=== PATIENT | female | born 1935 | race Caucasian/White ===

== ENCOUNTER 2017-12-26 07:44 | Observation (INO) | payer MEDICAID, MEDICARE ==
[2017-12-26] MEDS ORDERED: DEXTROSE 50%-WATER 50 ML SYRG IV ONE (08:06)
--- NOTE | 2017-12-26 08:11 | ERNOTE ---
Neuro HPI ER Record Presenting Symptoms: weakness - left sided Time Seen by Provider: 12/26/17 08:06 Source: family, EMS, correction records Exam Limitations: dementia - patient is a resident of [facility] and on making morning rounds they found that she had left-sided weakness, difficult to assess given the underlying dementia Immunizations: IMMUNIZATION HX Immunizations Up to Date Yes History of Influenza Vaccine No Hx Pneumococcal Vaccination Yes Allergies/Adverse Reactions: Allergies Allergy/AdvReac Type Severity Reaction Status Date / Time aspirin Allergy Unknown Verified 12/26/17 08:12 losartan Allergy Unknown Verified 12/26/17 08:12 Sulfa (Sulfonamide Allergy Unknown Verified 12/26/17 08:12 Antibiotics) Home Medications: HOME MEDICATIONS Diltiazem HCl [Diltiazem 24Hr Cd] 240 mg PO DAILY 02/23/15 [Last Taken Unknown] metFORMIN HCL [Glucophage] 500 mg PO BIDWM 02/23/15 [Last Taken Unknown] hydrochlorothiazide 25 mg tablet 25 mg PO DAILY 10/15/17 [Last Taken Unknown] levothyroxine 100 mcg capsule 112 mcg PO DAILY 10/15/17 [Last Taken Unknown] benzonatate 100 mg capsule 100 mg PO TID PRN #21 cap 12/15/17 [Last Taken Unknown] Acetaminophen [Mapap] 650 mg PO Q4H 12/26/17 [Last Taken Unknown] Calcium Carb/Magnesium Hydrox [Antacid Chewable Tablet] 1 each PO DAILY 12/26/17 [Last Taken Unknown] Clopidogrel Bisulfate [Plavix] 75 mg PO DAILY 12/26/17 [Last Taken Unknown] Ferrous Sulfate 325 mg PO BID 12/26/17 [Last Taken Unknown] Fexofenadine HCl 60 mg PO DAILY 12/26/17 [Last Taken Unknown] Furosemide 20 mg PO DAILY 12/26/17 [Last Taken Unknown] Glimepiride [Amaryl] 4 mg PO DAILY@0700 12/26/17 [Last Taken Unknown] Insulin Detemir [Levemir Flextouch] 15 unit SQ BID 12/26/17 [Last Taken Unknown] traMADol HCL [Tramadol HCl] 25 mg PO Q4H 12/26/17 [Last Taken Unknown] - History of Present Illness Onset: cannot confirm onset Severity: moderate - Character of Deficits New weakness: Present: LUE, LLE Baseline Cognition: Present: poor alertness Review of Systems - Review of Systems Constitutional: Present: See HPI EYE: Present: no symptoms reported ENT: Present: no symptoms reported Respiratory: Present: no symptoms reported Cardiology: Present: no symptoms reported Gastrointestinal/Abdominal: Present: no symptoms reported Genitourinary: Present: no symptoms reported Musculoskeletal: Present: no symptoms reported Skin: Present: no symptoms reported Neurological: Present: See HPI Endocrine: Present: no symptoms reported Hematologic/Lymphatic: Present: no symptoms reported Psych: Present: no symptoms reported Medical History (Last Updated 12/26/17 @ 08:09 by Latrell Valdez DO) Dementia Diabetes mellitus Onset Date: Unknown Hyperlipidemia Onset Date: Unknown Hypertension Onset Date: Unknown Thyroid disease Onset Date: Unknown Surgical History: Surgical History (Last Updated 09/29/17 @ 16:42 by Tracy Sykes RN) History of cataract surgery Onset Date: Unknown H/O: hysterectomy Onset Date: Unknown History of appendectomy Onset Date: Unknown History of esophagogastroduodenoscopy (EGD) Onset Date: Unknown History of thyroid surgery Onset Date: Unknown Family History: Family History (Last Updated 09/27/17 @ 16:58 by Vira Rm RN) Father Myocardial infarction Mother Diabetes Myocardial infarction Social History: Preferred Language Yi Abuse History No History of abuse Psych History No pertinent hx Physical Exam - Physical Exam General Appearance: Present: no apparent distress Head Exam: Present: normal inspection, no evidence of injury Eye Exam: Normal inspection: bilateral, PERRL: bilateral Ears, Nose, Throat: Present: normal ENT inspection, H, normal pharynx Neck: Present: normal inspection, nontender Respiratory: Present: no respiratory distress, normal breath sounds, no accessory muscle use, chest nontender, lungs clear Cardiovascular/Chest: Present: regular rate, rhythm, no murmur, normal peripheral pulses Gastrointestinal/Abdominal: Present: normal bowel sounds, nontender, nondistended, soft, no organomegaly Rectal Exam: Present: deferred Back Exam: Present: normal inspection, normal range of motion Extremity Exam: Present: normal inspection, non-tender, no edema, normal range of motion Neurological Exam: Present: normal mood/affect - patient is pleasantly confused with weakness of the left arm left leg, left arm drift and left-sided facial weakness Skin Exam: Present: normal color, warm/dry Lymphatic Exam: Present: no adenopathy Ramandeep Coma Scale - Assess Eye Opening: Spontaneous Motor: Obeys Commands Verbal: Confused - Total Coma Scale Total: 14 Initial Stroke Assessment - NIH Stroke Scale Level of Consciousness: Alert LOC Questions (Year and Age): Answers neither correctly LOC Commands (open/close eyes/fist): Performs both correctly Lateral Gaze Paresis: None Facial Palsy: Partial facial paralysis Right Arm Motor (10 sec hold): No drift Left Arm Motor (10 sec hold): Drift, effort made Right Leg Motor (5 sec hold): No drift Left Leg Motor (5 sec hold): Drift, effort made Dysarthria (speech clarity): Normal articulation ED Progress - Results and Orders Patient's Lab Results:: I have reviewed the patient's lab results. - Vital Signs Patient's Vital Signs:: I have reviewed the patient's vital signs. - EKG EKG: NSR - CT/Ultrasound CT/Ultrasound Narrative: CT the head reviewed by me Plan - Plan Plan: Initial be admitted to a monitored bed for correction of her low potassium, deglutition study and general neurologic monitoring. Departure Clinical Impression: Hypokalemia CVA (cerebral vascular accident) Qualifiers: CVA mechanism: occlusion Precerebral and cerebral artery: unspecified cerebral artery Qualified Code(s): I63.50 - Cerebral infarction due to unspecified occlusion or stenosis of unspecified cerebral artery - Departure Disposition: Still a patient Condition: Fair Referrals: Becky Seo DO [Primary Care Provider] -
[2017-12-26 08:12] LABS: Hematocrit 39.8 % (37.0-47.0); Hemoglobin 13.7 gm/dL (12.5-16.0); Mean Cell Volume 84.5 fl (78-100); Mean Corpuscular Hemoglobin 29.1 pg (27-31); Mean Corpuscular Hgb Conc 34.4 g/dl (32-36); Mean Platelet Volume 9.5 fl (8-12.5); Neutrophil # 6.6 K/mm3 (1.3-6.0); Platelet Count 283 K/mm3 (150-450); Red Blood Count 4.71 M/mm3 (4.2-5.4); Red Cell Distribution Width 15.9 % (11.5-14.0); White Blood Count 10.9 K/mm3 (4.0-10.5)
[2017-12-26] MEDS ORDERED: DEXTROSE 50%-WATER 50 ML SYRG ONE (08:12)
[2017-12-26 08:16] LABS: Prothrombin Time (Patient) 9.9 Seconds (9.0-11.0)
[2017-12-26 08:17] LABS: INR 0.99 INR (0.90-1.10)
[2017-12-26 08:19] LABS: Albumin * 2.8 gm/dl (3.4-5.0); Anion Gap 7.6 mmol/L (6.8-13.8); Bilirubin, Total 0.4 mg/dL (0.0-1.1); Ca. Corrected For Albumin 8.8 mg/dL (8.4-10.2); Calcium * 8.2 mg/dL (7.9-10.9); Carbon Dioxide 29.7 mmol/L (24-32.6); Total Protein 7.5 gm/dL (6.2-8.2)
[2017-12-26] MEDS ORDERED: NORMAL SALINE 1,000 ML IV PRN (08:20)
[2017-12-26 08:21] LABS: Potassium 2.3 mmol/L (3.4-4.6)
[2017-12-26] MEDS: POTASSIUM CHLORIDE IN WATER 100 ML IV SCH ×3 (08:48→11:55)
[2017-12-26 08:56] LABS: Urine Bilirubin Negative (NEGATIVE); Urine Blood Negative /ul (NEGATIVE); Urine Ketone Negative (NEGATIVE); Urine Nitrite Negative (NEGATIVE); Urine Protein Negative (NEGATIVE); Urine Specific Gravity 1.015 SP.GR. (1.005-1.010); Urine Urobilinogen Normal (NORMAL)
[2017-12-26 09:02] LABS: Urine Appearance Slightly Cloudy (CLEAR); Urine Color Yellow
[2017-12-26 09:03] LABS: Urine Bacteria 1+; Urine RBC None Seen /hpf (0-5)
[2017-12-26] MEDS ORDERED: POTASSIUM CHLORIDE 40 MEQ/15 ML BTL PO ONE (11:53)
[2017-12-26] MEDS ORDERED: ACETAMINOPHEN 325 MG TABLET PO PRN (12:49)
[2017-12-26] MEDS ORDERED: BENZONATATE 100 MG CAPSULE PO PRN (12:49)
[2017-12-26] MEDS ORDERED: CALCIUM CARBONATE 500 MG TAB.CHEW PO PRN (12:49)
[2017-12-26] MEDS: traMADol HCL 50 MG TABLET PO SCH ×3 (13:37→20:56)
--- NOTE | 2017-12-26 13:40 | HP ---
Chief Complaint - Chief Complaint Date of Service: 12/26/17 Time of Service: 13:05 Chief Complaint: Stroke-like symptoms History of Present Illness: The patient resides at [facility]. Per [facility], during morning rounds this AM, the patient was found to be unable to speak and had a flaccid left arm. However, HPI is limited secondary to the patient's baseline dementia. At the time of my exam, the patient states she feels perfectly fine and feels like her usual self. She denies any trouble speaking or swallowing and she denies any focal weakness. Multiple family members were in the room at the time of my exam and she was interacting with them normally and she appeared to be at her baseline when compared to the multiple times I have seen her at [facility]. Medical History (Last Updated 12/26/17 @ 10:58 by Marjorie Zamora RN) Dementia GERD (gastroesophageal reflux disease) Onset Date: Unknown Diabetes mellitus Onset Date: Unknown Hyperlipidemia Onset Date: Unknown Hypertension Onset Date: Unknown Thyroid disease Onset Date: Unknown Surgical History: Surgical History (Last Reviewed 12/26/17 @ 11:12 by Marjorie Zamora RN) History of cataract surgery Onset Date: Unknown H/O: hysterectomy Onset Date: Unknown History of appendectomy Onset Date: Unknown History of esophagogastroduodenoscopy (EGD) Onset Date: Unknown History of thyroid surgery Onset Date: Unknown Family History: Family History (Last Reviewed 12/26/17 @ 11:12 by Marjorie Zamora RN) Father Myocardial infarction Mother Diabetes Myocardial infarction Social History: Patient Lives/Resources [email or web address] Utilized Preferred Language Syriac Do you have any confucianism or No cultural preference? Smoking Status Former smoker Have you smoked in the past 12 No months Abuse History No History of abuse Psych History No pertinent hx Alcohol Use none Drug Use none Review Of Systems (GEN) - Review of Systems Generalized/Overall Review: Absent: Weakness Respiratory: Absent: Shortness of Breath Cardiac: Absent: Chest Pain Neurological: Absent: Weakness Misc: All systems neg except as marked Immunizations: IMMUNIZATION HX Immunizations Up to Date Yes History of Influenza Vaccine No Hx Pneumococcal Vaccination Yes Allergies/Adverse Reactions: Allergies Allergy/AdvReac Type Severity Reaction Status Date / Time aspirin Allergy Unknown Verified 12/26/17 08:12 losartan Allergy Unknown Verified 12/26/17 08:12 Sulfa (Sulfonamide Allergy Unknown Verified 12/26/17 08:12 Antibiotics) Home Medications: HOME MEDICATIONS Diltiazem HCl [Diltiazem 24Hr Cd] 240 mg PO DAILY 02/23/15 [Last Taken Unknown] metFORMIN HCL [Glucophage] 500 mg PO BIDWM 02/23/15 [Last Taken Unknown] hydrochlorothiazide 25 mg tablet 25 mg PO DAILY 10/15/17 [Last Taken Unknown] levothyroxine 100 mcg capsule 112 mcg PO DAILY 10/15/17 [Last Taken Unknown] benzonatate 100 mg capsule 100 mg PO TID PRN #21 cap 12/15/17 [Last Taken Unknown] Acetaminophen [Mapap] 650 mg PO Q4H PRN 12/26/17 [Last Taken Unknown] Calcium Carb/Magnesium Hydrox [Antacid Chewable Tablet] 1 each PO TID PRN 12/26/17 [Last Taken Unknown] Clopidogrel Bisulfate [Plavix] 75 mg PO DAILY 12/26/17 [Last Taken Unknown] Cyanocobalamin [Vitamin B-12] 1,000 mcg IM Q30D 12/26/17 [Last Taken 12/01/17 09:00] Ferrous Sulfate 325 mg PO BIDAC 12/26/17 [Last Taken Unknown] Fexofenadine HCl 60 mg PO DAILY 12/26/17 [Last Taken Unknown] Furosemide 20 mg PO DAILY 12/26/17 [Last Taken Unknown] Glimepiride [Amaryl] 4 mg PO BIDAC 12/26/17 [Last Taken Unknown] Insulin Detemir [Levemir Flextouch] 15 unit SQ BID 12/26/17 [Last Taken Unknown] traMADol HCL [Tramadol HCl] 25 mg PO Q4H 12/26/17 [Last Taken Unknown] Exam - Exam Vital Signs: Vital Signs - Last Taken Temp 37.1 C 12/26/17 10:15 Pulse 91 12/26/17 11:41 Resp 12 12/26/17 10:23 BP 134/72 12/26/17 10:23 Pulse Ox 95 12/26/17 10:23 Constitutional: Present: Alert, Cooperative, No distress, Elderly ENT Exam: Present: hearing grossly normal, moist mucous membranes Eye Exam: bilateral eye: normal inspection, PERRL, EOMI Neck: Present: normal inspection Respiratory: Present: lungs clear, normal breath sounds, no respiratory distress, no accessory muscle use Cardiovascular/Chest: Present: regular rate, rhythm, systolic murmur Abdomen: Present: soft, nontender, nondistended Skin Exam: Present: normal color, warm/dry Neurologic: Present: alert, normal mood/affect, other - No focal neurologic findings, patient moves all extremities without difficulty Appearance: Present: impaired recent memory, impaired remote memory Eye contact: Present: cooperative, good eye contact, normal speech Diagnostic Studies: Abnormal Lab Results 12/26/17 12/26/17 12/26/17 Range/Units 07:59 07:59 07:59 WBC 10.9 H (4.0-10.5) K/mm3 RDW 15.9 H (11.5-14.0) % Immature Gran # (Auto) 0.04 H (0.000-0.0310) K/mm3 Neutrophils # 6.6 H (1.3-6.0) K/mm3 Lymphocytes # 3.62 H (1.5-3.5) k/mm3 ESR 48 H (0-15) mm/hr Sodium 131 L (132-142) mmol/L Potassium 2.3 L* D (3.4-4.6) mmol/L Chloride 96 L (97-106) mmol/L BUN 29 H D (3-23) mg/dL Creatinine 1.45 H (0.4-1.4) mg/dL Est GFR (Non-Af Amer) 37 L D (60-130) mL/min Random Glucose 58 L (70-110) mg/dL Albumin 2.8 L (3.4-5.0) gm/dl Ur Leukocyte Esterase (NEGATIVE) /ul Urine WBC (0-5) /hpf Urine Bacteria (NONE) 12/26/17 Range/Units 08:51 WBC (4.0-10.5) K/mm3 RDW (11.5-14.0) % Immature Gran # (Auto) (0.000-0.0310) K/mm3 Neutrophils # (1.3-6.0) K/mm3 Lymphocytes # (1.5-3.5) k/mm3 ESR (0-15) mm/hr Sodium (132-142) mmol/L Potassium (3.4-4.6) mmol/L Chloride (97-106) mmol/L BUN (3-23) mg/dL Creatinine (0.4-1.4) mg/dL Est GFR (Non-Af Amer) (60-130) mL/min Random Glucose (70-110) mg/dL Albumin (3.4-5.0) gm/dl Ur Leukocyte Esterase 25 H (NEGATIVE) /ul Urine WBC 10-25 H (0-5) /hpf Urine Bacteria 1+ H (NONE) Laboratory Results WBC 10.9 K/mm3 (4.0-10.5) H 12/26/17 07:59 RBC 4.71 M/mm3 (4.2-5.4) 12/26/17 07:59 Hgb 13.7 gm/dL (12.5-16.0) 12/26/17 07:59 Hct 39.8 % (37.0-47.0) 12/26/17 07:59 MCV 84.5 fl (78-100) 12/26/17 07:59 MCH 29.1 pg (27-31) 12/26/17 07:59 MCHC 34.4 g/dl (32-36) 12/26/17 07:59 RDW 15.9 % (11.5-14.0) H 12/26/17 07:59 Plt Count 283 K/mm3 (150-450) 12/26/17 07:59 MPV 9.5 fl (8-12.5) 12/26/17 07:59 Immature Gran % (Auto) 0.40 % (0.001-0.429) 12/26/17 07:59 Immature Gran # (Auto) 0.04 K/mm3 (0.000-0.0310) H 12/26/17 07:59 Neutrophils % 60.0 % (42-75.0) 12/26/17 07:59 Lymphocytes % 33.2 % (20-51) 12/26/17 07:59 Monocytes % 5.8 % (0.0-9) 12/26/17 07:59 Eosinophils % 0.3 % (0.0-3.0) 12/26/17 07:59 Basophils % 0.3 % (0.0-1.0) 12/26/17 07:59 Nucleated RBC % 0.0 k/mm3 (0-1) 12/26/17 07:59 Neutrophils # 6.6 K/mm3 (1.3-6.0) H 12/26/17 07:59 Lymphocytes # 3.62 k/mm3 (1.5-3.5) H 12/26/17 07:59 Monocytes # 0.6 k/mm3 (0.0-1.0) 12/26/17 07:59 Eosinophils # 0.0 k/mm3 (0.0-0.7) 12/26/17 07:59 Absolute Basophils 0.0 k/mm3 (0.0-0.1) 12/26/17 07:59 ESR 48 mm/hr (0-15) H 12/26/17 07:59 PT 9.9 Seconds (9.0-11.0) 12/26/17 07:59 INR (Anticoag Therapy) 0.99 INR (0.90-1.10) 12/26/17 07:59 PTT (Florencio) 25.0 Seconds (24-32) 12/26/17 07:59 Sodium 131 mmol/L (132-142) L 12/26/17 07:59 Plasma Sodium 130 mmol/L (130-142) 12/26/17 07:59 Potassium 2.3 mmol/L (3.4-4.6) L* D 12/26/17 07:59 Chloride 96 mmol/L (97-106) L 12/26/17 07:59 Carbon Dioxide 29.7 mmol/L (24-32.6) 12/26/17 07:59 Anion Gap 7.6 mmol/L (6.8-13.8) 12/26/17 07:59 BUN 29 mg/dL (3-23) H D 12/26/17 07:59 Creatinine 1.45 mg/dL (0.4-1.4) H 12/26/17 07:59 Est GFR (Non-Af Amer) 37 mL/min (60-130) L D 12/26/17 07:59 BUN/Creatinine Ratio 20.0 (9.0-21.6) 12/26/17 07:59 Random Glucose 58 mg/dL (70-110) L 12/26/17 07:59 Calcium 8.2 mg/dL (7.9-10.9) 12/26/17 07:59 Calcium Adj for Albumin 8.8 mg/dL (8.4-10.2) 12/26/17 07:59 Total Bilirubin 0.4 mg/dL (0.0-1.1) 12/26/17 07:59 AST 25 U/L (0-48) 12/26/17 07:59 ALT 23 U/L (19-67) 12/26/17 07:59 Alkaline Phosphatase 66 U/L (50-170) 12/26/17 07:59 Total Protein 7.5 gm/dL (6.2-8.2) 10 07:59 Albumin 2.8 gm/dl (3.4-5.0) L 12/26/17 07:59 Urine Color Yellow 12/26/17 08:51 Urine Appearance Slightly cloudy (CLEAR) 12/26/17 08:51 Urine pH 6.0 pH (5.0-7.0) 12/26/17 08:51 Ur Specific [place] 1.015 SP.GR. (1.005-1.010) 12/26/17 08:51 Urine Protein Negative mg/dL (NEGATIVE) 12/26/17 08:51 Urine Glucose (UA) Negative mg/dL (NEGATIVE) 12/26/17 08:51 Urine Ketones Negative mg/dL (NEGATIVE) 12/26/17 08:51 Urine Blood Negative /ul (NEGATIVE) 12/26/17 08:51 Urine Nitrate Negative (NEGATIVE) 12/26/17 08:51 Urine Bilirubin Negative mg/dl (NEGATIVE) 12/26/17 08:51 Urine Urobilinogen Normal EU/dl (NORMAL) 12/26/17 08:51 Ur Leukocyte Esterase 25 /ul (NEGATIVE) H 12/26/17 08:51 Urine RBC None seen /hpf (0-5) 12/26/17 08:51 Urine WBC 10-25 /hpf (0-5) H 12/26/17 08:51 Ur Epithelial Cells 0-5 /hpf (0-5) 12/26/17 08:51 Urine Bacteria 1+ (NONE) H 12/26/17 08:51 Urine Culture Comments Culture to follow 12/26/17 08:51 Assessment/Plan - Narrative Narrative: Potassium replacement started in the ED. Give 40mEq KCl PO X 1 now. Recheck potassium level at 1600 today. Start daily potassium replacement with 40mEq PO daily. Recheck BMP in AM. The patient has a history of multiple prior strokes. She has dementia and is a long-term resident at [facility]. The patient appears to be back to baseline so it is likely the patient had a TIA. I discussed with the patient and her family who were agreeable that given the patient's baseline dementia and functional status, we will not complete an extensive stroke work-up as it is unlikely to change our plan of care anyway. I will have PT and OT assess the patient this afternoon and possibly continue therapies after patient returns to [facility]. Check lipid panel in AM with plans to likely start statin therapy. As long as the patient remains stable we will plan to discharge her back to [facility] in the AM. - Assessment/Plan (1) TIA (transient ischemic attack) Problem: Acute (2) Hypokalemia Problem: Acute
[2017-12-26] MEDS: FERROUS SULFATE 325 MG TABLET PO SCH (16:56)
[2017-12-26] MEDS: INSULIN LISPRO 100 UNITS/ML VIAL SC SCH (16:56)
[2017-12-26] MEDS: INSULIN DETEMIR 100 UNITS/ML VIAL SC SCH (20:52)
[2017-12-27] MEDS: traMADol HCL 50 MG TABLET PO SCH ×3 (00:40→09:18)
[2017-12-27] MEDS ORDERED: diphenhydrAMINE HCL 25 MG CAPSULE PO ONE (01:15)
[2017-12-27 05:57] LABS: Anion Gap 5.4 mmol/L (6.8-13.8); BUN/Creatinine Ratio 14.7 (9.0-21.6); Carbon Dioxide 30.2 mmol/L (24-32.6); Chol/HDL Risk Ratio 3.1 mg/dL (3.3-4.4); Estimated Creat Clear 30.9; Potassium 2.6 mmol/L (3.4-4.6)
[2017-12-27] MEDS: INSULIN LISPRO 100 UNITS/ML VIAL SC SCH (06:00)
[2017-12-27] MEDS ORDERED: DEXTROSE 50%-WATER 50 ML SYRG ONE (06:09)
[2017-12-27] MEDS ORDERED: DEXTROSE 50%-WATER 50 ML SYRG IV ONE (06:18)
[2017-12-27] MEDS ORDERED: LEVOTHYROXINE SODIUM 112 MCG TABLET PO SCH (07:00)
[2017-12-27] MEDS: FERROUS SULFATE 325 MG TABLET PO SCH (07:36)
[2017-12-27] MEDS ORDERED: POTASSIUM CHLORIDE 20 MEQ TABLET.SA PO SCH (09:00)
[2017-12-27] MEDS ORDERED: DILTIAZEM HCL 240 MG CAP.SR.24H PO SCH (09:00)
[2017-12-27] MEDS ORDERED: LORATADINE 10 MG TABLET PO SCH (09:00)
[2017-12-27] MEDS ORDERED: HYDROCHLOROTHIAZIDE 25 MG TABLET PO SCH (09:00)
[2017-12-27] MEDS ORDERED: FUROSEMIDE 20 MG TABLET PO SCH (09:00)
[2017-12-27] MEDS ORDERED: CLOPIDOGREL BISULFATE 75 MG TABLET PO SCH (09:00)
[2017-12-27] MEDS: INSULIN DETEMIR 100 UNITS/ML VIAL SC SCH (09:34)
--- NOTE | 2017-12-27 10:58 | DS ---
(1) TIA (transient ischemic attack) Problem: Suspected (2) Hypokalemia Problem: Acute (3) Hypoglycemia Problem: Acute Description of Stay: HOSPITAL COURSE: The patient was admitted to the hospital with what was originally thought to be a stroke. However, the patient was back to baseline by the time I saw the patient and it was determined that the patient's presentation was secondary to hypoglycemia. Her diabetic medications were adjusted and she was discharged back to [facility] in stable condition. Procedures Performed: none Results and Findings: Pending Mircobiology Results 12/26/17 09:03 Urine,Clean Catch Urine Culture - Preliminary Gram Negative Bacilli Gram Negative Bacilli#2 Lab Pending Results 12/26/17 07:59: WBC 10.9 H, RBC 4.71, Hgb 13.7, Hct 39.8, MCV 84.5, MCH 29.1, MCHC 34.4, RDW 15.9 H, Plt Count 283, MPV 9.5, Immature Gran % (Auto) 0.40, Im mature Gran # (Auto) 0.04 H, Neutrophils % 60.0, Lymphocytes % 33.2, Monocytes % 5.8, Eosinophils % 0.3, Basophils % 0.3, Nucleated RBC % 0.0, Neutrophils # 6.6 H, Lymphocytes # 3.62 H, Monocytes # 0.6, Eosinophils # 0.0, Absolute Basophils 0.0 12/26/17 07:59: Sodium 131 L, Plasma Sodium 130, Potassium 2.3 L* D, Chloride 96 L, Carbon Dioxide 29.7, Anion Gap 7.6, BUN 29 H D, Creatinine 1.45 H, Est GFR (Non-Af Amer) 37 L D, BUN/Creatinine Ratio 20.0, Random Glucose 58 L, Calcium 8.2, Calcium Adj for Albumin 8.8, Total Bilirubin 0.4, AST 25, ALT 23, Alkaline Phosphatase 66, Total Protein 7.5, Albumin 2.8 L 12/26/17 07:59: ESR 48 H 12/26/17 07:59: PT 9.9, INR (Anticoag Therapy) 0.99, PTT (Florencio) 25.0 12/26/17 08:51: Urine Color Yellow, Urine Appearance Slightly cloudy, Urine pH 6.0, Ur Specific [place] 1.015, Urine Protein Negative, Urine Glucose (UA) Negative, Urine Ketones Negative, Urine Blood Negative, Urine Nitrate Negative, Urine Bilirubin Negative, Urine Urobilinogen Normal, Ur Leukocyte Esterase 25 H, Urine RBC None seen, Urine WBC 10-25 H, Ur Epithelial Cells 0-5, Urine Bacteria 1+ H, Urine Culture Comments Culture to follow 12/26/17 16:04: Potassium 3.2 L D 12/27/17 05:32: Sodium 134, Plasma Sodium 133, Potassium 2.6 L, Chloride 101, Carbon Dioxide 30.2, Anion Gap 5.4 L, BUN 16, Creatinine 1.09, Est GFR (Non-Af Amer) 51 L D, BUN/Creatinine Ratio 14.7, Random Glucose 29 L* D, Calcium 8.0, Triglycerides 100, Cholesterol 131, LDL Cholesterol 70, VLDL Cholesterol 20, HDL Cholesterol 41, Cholesterol/HDL Ratio 3.1 L, TSH (Reflex) 0.722 Discharge Location: [facility] Disposition: Intermediate Care Facility ICF Condition: Stable Level of Care: ICF Discharge Activity: Activity as tolerated Discharge Diet: General/regular food Referrals: Becky Seo DO [Primary Care Provider] - Prescriptions (Any new or edited meds): metFORMIN HCL [Glucophage] 1,000 mg PO BIDWM #120 tablet Complete Home Medications List: Complete Home Medication List: Diltiazem HCl [Diltiazem 24Hr Cd] 240 mg PO DAILY 02/23/15 hydrochlorothiazide 25 mg tablet 25 mg PO DAILY 10/15/17 levothyroxine 100 mcg capsule 112 mcg PO DAILY 10/15/17 benzonatate 100 mg capsule 100 mg PO TID PRN #21 cap 12/15/17 Acetaminophen [Mapap] 650 mg PO Q4H PRN 12/26/17 Calcium Carb/Magnesium Hydrox [Antacid Chewable Tablet] 1 each PO TID PRN 12/26/17 Clopidogrel Bisulfate [Plavix] 75 mg PO DAILY 12/26/17 Cyanocobalamin [Vitamin B-12] 1,000 mcg IM Q30D 12/26/17 Ferrous Sulfate 325 mg PO BIDAC 12/26/17 Fexofenadine HCl 60 mg PO DAILY 12/26/17 Furosemide 20 mg PO DAILY 12/26/17 Potassium Chloride [K-Dur] 40 meq PO DAILY tablet.sa 12/27/17 metFORMIN HCL [Glucophage] 1,000 mg PO BIDWM #120 tablet 12/27/17 tramadol 50 mg tablet 25 mg PO Q4H PRN 01/10/18
[2017-12-27 12:46] VITALS: BP 155/86
== END 2017-12-27 12:50 ==
LOC: ER 07:44 → INTOOBSV 10:13 → MS 10:13
PROVIDERS: ADMIT Internal Medicine; ATTEND Internal Medicine
CPT/HCPCS: 36415; 70450; 80048; 80053; 80061; 81001; 84132; 84443; 85025; 85610; 85652; 85730; 87077; 87081; 87086; 87186; 90686; 93005; 96361; 96365; 96366; 96375; 96376; 97110; 97116; 97161; 97166; 97535; 99285; G0008; G0378; G8978; G8979; G8980; G8987; G8988; G8989